=== PATIENT | female | born 1955 | race Caucasian/White ===

== ENCOUNTER 2022-07-14 15:37 | Emergency (ER) | payer BC ==
[~2022-07-14] VITALS: Ht 160 cm; Wt 81.6 kg
[2022-07-14 16:14] VITALS: BP_SYST 162
--- NOTE | 2022-07-14 16:19 | NUR ---
BIBS WITH C/C OF CHEST PAIN FOR ONE WEEK. PT REPORTS WORSENING CHEST PAIN TODAY. PT STATED THAT SHE WAS IN HER BEDROOM WALKING AROUND WHEN PAIN STARTED. WAS 10/10 PAIN. PT REPORTS HAVING INCREASED CONFUSION TODAY AND DIFFICULTY TO WRITE ON PAPER. NO FACIAL DROOP, PT AMBULATORY WITH EQUAL STRENGTH 5/5 IN ALL EXTREMITIES, PT'S SPEECH DID HAVE A SLIGHT SLURR. PT STATES THAT IS HOW SHE SPEAKS. PT TAKEN TO ROOM 7, 12L EKG DONE. ENDORSED TO COVERING RN.
--- NOTE | 2022-07-14 16:19 | NUR ---
received in [facility] friend for midsternal chest pressure since saturday worse today. + dizziness. denies n,v,d,fever, chills, sob. poor appetite. hx tia. mild slurred speech.- arm drift. no facial droop. strong equal powerhouse tender. aao x4. resp even and nonlabored. vss. sr up x2
--- NOTE | 2022-07-14 16:24 | NUR ---
DR. WISE AT TO ASSESS. UPDATED ON STATUS.
[2022-07-14 16:35] LABS: BASOPHILS # (AUTO) 0.1 K/uL (0.0-0.2); BASOPHILS % (AUTO) 1.1 % (0.0-2.0); EOSINOPHILS # (AUTO) 0.4 K/uL (0.0-0.4); EOSINOPHILS % (AUTO) 4.5 % (0.0-4.0); HEMATOCRIT 34.8 % (36-48); LYMPHOCYTES # (AUTO) 2.1 K/uL (1.0-5.5); LYMPHOCYTES % (AUTO) 26.3 % (20.5-51.5); MEAN CORPUSCULAR VOLUME 82 fL (79.0-98.0); MONOCYTES # (AUTO) 0.5 K/uL (0.0-1.0); MONOCYTES % (AUTO) 6.2 % (1.7-9.3); NEUTROPHILS # (AUTO) 4.8 K/uL (1.8-7.7); NEUTROPHILS % (AUTO) 61.9 % (40.0-70.0); PLATELET COUNT (AUTO) 213 K/uL (130-430); RED BLOOD CELL COUNT(AUTO) 4.23 MIL/uL (4.2-6.2); RED CELL DISTRIBUTION WIDTH 13.6 % (9.0-15.0); WHITE BLOOD COUNT (AUTO) 7.8 K/uL (4.8-10.8)
[2022-07-14 16:56] LABS: ANION GAP 9 (5-15); CHLORIDE 100 mmol/L (98-107); CREATININE 1.07 mg/dL (0.55-1.30); GLUCOSE 181 mg/dL (70-99); POTASSIUM 3.3 mmol/L (3.5-5.1); SODIUM SERUM 138 mmol/L (136-145); UREA NITROGEN, BLOOD 25 mg/dL (8-21)
[2022-07-14 17:04] LABS: GFR AFRICAN AMERICAN 66 mL/min (>90)
[2022-07-14 17:10] LABS: ALANINE AMINOTRANSFERASE 27 U/L (12-78); ALBUMIN 3.5 g/dL (3.4-4.8); ASPARTATE AMINOTRANSFERASE 25 U/L (10-37); THYROID STIMULATING HORMONE 0.49 uIu/mL (0.36-3.74); TOTAL BILIRUBIN 0.4 mg/dL (0.0-1.0)
[2022-07-14 17:29] LABS: C-REACTIVE PROTEIN QUANT < 0.2 mg/dL (0-0.5)
[2022-07-14 17:45] LABS: ACETONE, SERUM NEGATIVE (NEGATIVE)
[2022-07-14] MEDS ORDERED: IBUP-1969 PO (17:47)
[2022-07-14] MEDS ORDERED: AMOX-423 PO (17:47)
--- NOTE | 2022-07-14 18:10 | NUR ---
pt made aware md needs urine sample and stated "i don"t have to go yet". aao x4. resp even and nonlabored. vss. pending results
[2022-07-14 18:45] VITALS: BP_SYST 132
--- NOTE | 2022-07-14 18:47 | NUR ---
med cleared for d/c given aci by md and verbalized understanding. all questions answered. iv removed. vss. nad. ambulatory with steady gait. instructed to f/u with pcp or return to er for worsening of sx. exited ed with steady gait. all belongings taken
== END 2022-07-14 18:47 | disposition home or self-care (01) ==
LOC: SED 15:37
DX: K57.92 Diverticulitis of intestine, part unspecified, without perforation or abscess without bleeding (principal); R53.1 Weakness; R07.9 Chest pain, unspecified; R42 Dizziness and giddiness; Z88.1 Allergy status to other antibiotic agents; Z88.2 Allergy status to sulfonamides; Z88.6 Allergy status to analgesic agent; Z79.899 Other long term (current) drug therapy
CPT/HCPCS: 36415; 71045; 76376; 80053; 82009; 82550; 83605; 84439; 84443; 85025; 86140; 93005; 99285